=== PATIENT | female | born 1985 | race American Indian/Alaskan Native ===

== ENCOUNTER 2018-06-09 10:04 | Emergency (ER) | payer OTHER, MEDICAID ==
[2018-06-09] MEDS ORDERED: ZOFRAN IV ONE (10:43)
[2018-06-09] MEDS ORDERED: MORPHINE IV ONE ×2 (10:43→13:49)
[2018-06-09] MEDS ORDERED: NACL 0.9% 1000 ML 1,000 ML IV ONE (10:43)
--- NOTE | 2018-06-09 10:47 | Emergency Department Report ---
ED Female HPI - General Stated complaint: MISCARRIAGE Time Seen by Provider: 06/09/18 10:41 - History of Present Illness Initial comments: Patient is 32 years old female 6 para 3 with 2 miscarriages. Patient approximately 17 weeks presented to the emergency room complaining of lower abdominal pain and vaginal bleeding. Patient passed a material with large blood clots in the emergency room. Patient stated that she follow up with his [facility], she talked with her OB doctor who is planning to do a D&C in the morning. Patient denied any dizziness, chest pain or shortness of breath. MD Complaint: vaginal bleeding, pelvic pain - Related Data Previous Rx's Medication Instructions Recorded Last Taken Type Acetaminophen/Codeine [Tylenol #3] 1 tab PO Q6H PRN #20 tab 09/21/13 Unknown Rx Azithromycin [Zithromax Z-MACK] 250 mg PO DAILY #1 tablet 09/21/13 Unknown Rx Loratadine [Claritin] 10 mg PO DAILY #30 tablet 09/21/13 Unknown Rx Pnv with Ca,No.71/Iron/FA 1 each PO DAILY #90 tablet 09/21/13 Unknown Rx [ Vitamin Tablet] Labetalol [Normodyne TAB] 200 mg PO BID #60 tablet 05/01/14 Unknown Rx Allergies Allergy/AdvReac Type Severity Reaction Status Date / Time No Known Allergies Allergy Verified 04/22/14 12:21 ED Review of Systems ROS: Stated complaint: MISCARRIAGE Other details as noted in HPI Comment: All other systems reviewed and negative Constitutional: no symptoms reported Respiratory: denies: cough, orthopnea, shortness of breath, SOB with exertion, SOB at rest Cardiovascular: denies: chest pain, palpitations, dyspnea on exertion Gastrointestinal: abdominal pain. denies: nausea, vomiting, diarrhea, constipation, hematemesis, melena, hematochezia Neurological: denies: headache, weakness ED Past Medical Hx - Past Medical History Hx Hypertension: No Hx Congestive Heart Failure: No Hx Diabetes: No Hx Deep Vein Thrombosis: No Hx Renal Disease: No Hx Sickle Cell Disease: No Hx Seizures: No Hx Asthma: No Hx COPD: No Hx HIV: No - Social History Smoking Status: Never Smoker - Medications Home Medications: Home Medications Medication Instructions Recorded Confirmed Last Taken Type Acetaminophen/Codeine [Tylenol #3] 1 tab PO Q6H PRN #20 tab 09/21/13 05/01/14 Unknown Rx Azithromycin [Zithromax Z-MACK] 250 mg PO DAILY #1 tablet 09/21/13 05/01/14 Unknown Rx Loratadine [Claritin] 10 mg PO DAILY #30 tablet 09/21/13 05/01/14 Unknown Rx Pnv with Ca,No.71/Iron/FA 1 each PO DAILY #90 tablet 09/21/13 05/01/14 Unknown Rx [ Vitamin Tablet] Labetalol [Normodyne TAB] 200 mg PO BID #60 tablet 05/01/14 Unknown Rx ED Physical Exam - General General appearance: alert, in no apparent distress, anxious - Head Head exam: Present: atraumatic, normocephalic, normal inspection - Eye Eye exam: Present: normal appearance, PERRL - ENT ENT exam: Present: normal exam, normal orophraynx, mucous membranes moist - Neck Neck exam: Present: normal inspection, full ROM. Absent: tenderness, meningismus, lymphadenopathy, thyromegaly - Respiratory Respiratory exam: Present: normal lung sounds bilaterally. Absent: respiratory distress, wheezes, rales, rhonchi, stridor, chest wall tenderness, accessory muscle use, decreased breath sounds, prolonged expiratory - Cardiovascular Cardiovascular Exam: Present: regular rate, normal rhythm, normal heart sounds - GI/Abdominal GI/Abdominal exam: Present: soft, normal bowel sounds. Absent: distended, tenderness, guarding, rebound, rigid, organomegaly, mass, bruit, pulsatile mass, hernia - External exam: Present: normal external exam, bleeding. Absent: erythema, swelling, lacerations Speculum exam: Present: vaginal bleeding - Extremities Exam Extremities exam: Present: normal inspection, full ROM, normal capillary refill - Back Exam Back exam: Present: normal inspection, full ROM. Absent: tenderness, CVA tenderness (R), CVA tenderness (L), muscle spasm, paraspinal tenderness, vertebral tenderness - Neurological Exam Neurological exam: Present: alert, oriented X3, CN II-XII intact, normal gait, r eflexes normal - Skin Skin exam: Present: warm, intact, normal color ED Course Vital Signs 06/09/18 06/09/18 06/09/18 10:10 10:33 10:46 Pulse Rate 79 78 79 Respiratory 15 13 20 Rate Blood Pressure 132/71 132/71 O2 Sat by Pulse 97 94 99 Oximetry 06/09/18 06/09/18 06/09/18 11:00 11:16 11:30 Pulse Rate 83 82 84 Respiratory 13 17 17 Rate Blood Pressure 127/71 127/71 123/81 O2 Sat by Pulse 99 98 97 Oximetry 06/09/18 06/09/18 11:46 12:00 Pulse Rate 94 H 86 Respiratory 12 19 Rate Blood Pressure 123/81 123/81 O2 Sat by Pulse 98 99 Oximetry ED Medical Decision Making - Lab Data Result diagrams: 06/09/18 10:50 06/09/18 10:50 - Radiology Data Radiology results: report reviewed - Medical Decision Making Patient is 32 years old female 6 para 3 with 2 miscarriages. Patient approximately 17 weeks presented to the emergency room complaining of lower abdominal pain and vaginal bleeding. Patient passed a material with large blood clots in the emergency room. Patient stated that she follow up with his [facility], she talked with her OB doctor who is planning to do a D&C in the morning. Patient denied any dizziness, chest pain or shortness of breath. Patient stated that she is feeling much better. The abdominal pain is almost resolved. Vaginal bleeding is minimum now. I advised the patient to follow up with her OB as scheduled tomorrow for possible D&C. I also advised to return to the ER if her symptoms are not improved. Critical care attestation.: If time is entered above; I have spent that time in minutes in the direct care of this critically ill patient, excluding procedure time. ED Disposition Clinical Impression: Abdominal pain, Vaginal bleeding before 22 weeks gestation, Incomplete miscarriage Disposition: - TO HOME OR SELFCARE Is pt being admited?: No Condition: Stable Instructions: Spontaneous Miscarriage (ED) Referrals: HARSHAL PETIT [Primary Care Provider] - 3-5 Days
[2018-06-09 11:22] LABS: Alanine Aminotransferase 12 units/L (7-56); Albumin 3.6 g/dL (3.9-5); BUN/Creatinine Ratio 10; Blood Urea Nitrogen 5 mg/dL (7-17); Hemolysis Index 7
[2018-06-09 11:41] LABS: Basophils # (Auto) 0.1 K/mm3 (0.0-0.1); Basophils % (Auto) 0.8 % (0.0-1.8); Eosinophils # (Auto) 0.2 K/mm3 (0.0-0.4); Eosinophils % (Auto) 2.1 % (0.0-4.3); Hematocrit 31.5 % (30.3-42.9); Hemoglobin 9.6 gm/dl (10.1-14.3); Lymphocytes # (Auto) 2.2 K/mm3 (1.2-5.4); Lymphocytes % (Auto) 23.5 % (13.4-35.0); Mean Corpuscular HGB Conc 30 % (30-34); Monocytes # (Auto) 0.8 K/mm3 (0.0-0.8); Monocytes % (Auto) 8.9 % (0.0-7.3); Platelet Count 351 K/mm3 (140-440); Red Blood Count 4.72 M/mm3 (3.65-5.03)
[2018-06-09 11:44] LABS: Mean Corpuscular Volume 67 fl (79-97); Red Cell Distribution Width 24.8 % (13.2-15.2)
[2018-06-09] MEDS ORDERED: MORPHINE ONE (13:56)
--- NOTE | 2018-06-09 14:33 | Ultrasound Report ---
FINAL REPORT EXAM: US PELVIC COMPLETE HISTORY: 13 wks , abdominal pain ? miscarriage TECHNIQUE: Grayscale and color doppler ultrasound imaging of the pelvis was performed transabdomina lly and transvaginally. PRIORS: None. FINDINGS: Uterus: There is a partially calcified uterine fibroid in the posterior aspect of the uterus measurin g 5.6 x 3.0 x 4.0 centimeters. The uterus measures 13.9 x 7.9 x 8.5 centimeters. No intrauterine or e ctopic was seen. Endometrium: The endometrium is normal in echogenicity. The endometrium measures 38 millimeters. [place] r Doppler interrogation of the endometrium was not performed. Ovaries: There is a nonspecific echogenic focus within the right ovary measuring 2.7 x 2.7 x 2.4 cent imeters. No left ovarian lesions. Normal flow is seen to the ovaries. The right ovary measures 4.6 x 2.5 x 3.6 centimeters. The left ovary measures 3.5 x 2.6 x 2.2 centimeters. Free fluid: None. IMPRESSION: 1. No intrauterine . Thickened endometrium may be related to retained products of conception . 2. Uterine fibroid. 3. Nonspecific echogenic right ovarian lesion may represent a hemorrhagic cyst versus endometrioma. R ecommend followup pelvic ultrasound in 6-10 weeks.
--- NOTE | 2018-06-09 14:40 | Ultrasound Report ---
FINAL REPORT EXAM: US TRANSVAGINAL HISTORY: ABDOMINAL PAIN/bleeding TECHNIQUE: Grayscale and color doppler ultrasound imaging of the pelvis was performed transabdominal ly and transvaginally. PRIORS: None. FINDINGS: Uterus: There is a partially calcified uterine fibroid in the posterior aspect of the uterus measurin g 5.6 x 3.0 x 4.0 centimeters. The uterus measures 13.9 x 7.9 x 8.5 centimeters. No intrauterine or e ctopic was seen. Endometrium: The endometrium is normal in echogenicity. The endometrium measures 38 millimeters. [place] r Doppler interrogation of the endometrium was not performed. Ovaries: There is a nonspecific echogenic focus within the right ovary measuring 2.7 x 2.7 x 2.4 cent imeters. No left ovarian lesions. Normal flow is seen to the ovaries. The right ovary measures 4.6 x 2.5 x 3.6 centimeters. The left ovary measures 3.5 x 2.6 x 2.2 centimeters. Free fluid: None. IMPRESSION: 1. No intrauterine . Thickened endometrium may be related to retained products of conception . 2. Uterine fibroid. 3. Nonspecific echogenic right ovarian lesion may represent a hemorrhagic cyst versus endometrioma. R ecommend followup pelvic ultrasound in 6-10 weeks.
[2018-06-09] MEDS ORDERED: METHERGINE IM ONE (14:50)
[2018-06-09 16:59] VITALS: BP 113/78
== END 2018-06-09 15:50 | disposition home or self-care (01) ==
LOC: ED 10:04
DX: O03.4 Incomplete spontaneous abortion without complication (principal); Z3A.17 17 weeks gestation of pregnancy
CPT/HCPCS: 36415; 76801; 76817; 80053; 84702; 85025; 96372; 96374; 96375; 99284; J2210; J2270; J2405; J7030; 76830; 76856; 96376